=== PATIENT | male | born 1975 | race Caucasian/White ===

== ENCOUNTER 2018-01-15 09:23 | Day surgery (SDC) | payer OTHER ==
[~2018-01-15 09:23] MED LIST: DIPHENHYDRAMINE HCL 50 MG/ML VIAL ONE; NALOXONE HCL INJ/PF 0.4 MG/1 ML SDV ONE; ONDANSETRON HCL INJ/PF 4 MG/2 ML SDV ONE
[2018-01-15] MEDS ORDERED: FLUMAZENIL INJ 0.5 MG/5 ML VIAL ONE (09:24)
[2018-01-15] MEDS ORDERED: EPINEPHRINE INJ 1 MG/10 ML DISP.SYRIN ONE (09:24)
[2018-01-15] MEDS ORDERED: GLUCAGON,HUMAN RECOMB 1 MG INJ ONE (09:24)
[2018-01-15] MEDS: MIDAZOLAM 2 MG/2 ML INJ ONE ×3 (09:55→10:04)
[2018-01-15] MEDS: FENTANYL CITRATE INJ/PF 100 MCG/2 ML AMPUL ONE ×2 (09:57→09:59)
--- NOTE | 2018-01-15 10:12 | Operative Report ---
Operative Report DATE OF SURGERY: 01/15/18 Operative Report: The risks benefits and alternatives of the procedure explained to the patient in detail and informed consent is obtained.A GIF Olympus video scope was inserted into the patient's mouth and hypopharynx, the esophagus is identified intubated and insufflated, the scope was then advanced through the esophagus stomach and duodenum, retroflexion maneuver is done, the esophagus stomach and first and second portions of the duodenum examined PREOPERATIVE DIAGNOSIS: Gastroesophageal reflux disease POSTOPERATIVE DIAGNOSIS: Esophagitis versus Giles's status post biopsy. Gastritis status post biopsy OPERATION: EGD with biopsy SURGEON: MAUREEN MAR ANESTHESIA: Moderate Sedation - 5 mg of Versed, 100 mcg of fentanyl. Conscious sedation monitoring time 30 minutes. TISSUE REMOVED OR ALTERED: As noted above. COMPLICATIONS: None. ESTIMATED BLOOD LOSS: None. INTRAOPERATIVE FINDINGS: As noted above. PROCEDURE: Patient tolerated procedure well. No immediate postprocedure comp occasions are noted. Patient discharged in good condition. Discharge date 01/15/2018. Discharge diet: Regular. Discharge activity: Regular. 2-3 week follow-up to discuss findings. Patient is instructed to call the office or proceed to the emergency room should there be any further problems or questions. We will wait on pathology.
[2018-01-15 11:29] VITALS: BP 118/85
== END 2018-01-15 11:10 | disposition home or self-care (01) ==
LOC: END 09:23
PROVIDERS: ATTEND Internal Medicine Gastroenterology
DX: K31.84 Gastroparesis (principal); K21.0 Gastro-esophageal reflux disease with esophagitis; K29.50 Unspecified chronic gastritis without bleeding
CPT/HCPCS: 43239; 88342 ×2; 88305 ×2; J2250; J3010; J0171; J1200; J1610; J2310; J2405; J3490

== ENCOUNTER 2018-02-05 09:28 | Day surgery (SDC) | payer OTHER ==
[~2018-02-05 09:28] MED LIST changes: +EPINEPHRINE INJ 1 MG/10 ML DISP.SYRIN ONE; +FLUMAZENIL INJ 0.5 MG/5 ML VIAL ONE; +GLUCAGON,HUMAN RECOMB 1 MG INJ ONE; +ONABOTULINUMTOXINA INJ/PF 100 UNIT SDV IM PRN
[2018-02-05] MEDS: MIDAZOLAM 2 MG/2 ML INJ ONE ×2 (09:59→10:03)
[2018-02-05] MEDS: FENTANYL CITRATE INJ/PF 100 MCG/2 ML AMPUL ONE ×2 (10:01→10:05)
--- NOTE | 2018-02-05 10:14 | Operative Report ---
Operative Report DATE OF SURGERY: 02/05/18 Operative Report: The risks benefits and alternatives of the procedure explained to the patient in detail and informed consent is obtained.A GIF Olympus video scope was inserted into the patient's mouth and hypopharynx, the esophagus is identified intubated and insufflated, the scope was then advanced through the esophagus stomach and duodenum, retroflexion maneuver is done, the esophagus stomach and first and second portions of the duodenum examined PREOPERATIVE DIAGNOSIS: Gastroparesis POSTOPERATIVE DIAGNOSIS: Same, gastritis; status post injection of Botox at the gastric outlet. 100 units per 5 mL for 20 U/mL injection. Gastritis. Gastroparesis OPERATION: EGD with submucosal injection SURGEON: MAUREEN MAR ANESTHESIA: Moderate Sedation - 4 mg of Versed, 100 mcg of fentanyl. Conscious sedation monitoring time 30 minutes. TISSUE REMOVED OR ALTERED: None. COMPLICATIONS: None. ESTIMATED BLOOD LOSS: None. INTRAOPERATIVE FINDINGS: As noted above. PROCEDURE: Patient tolerated the procedure well. No immediate postprocedure complications are noted. Patient is discharged in good condition. Discharge date 02/05/2018. Discharge diet: Regular. Discharge activity: Regular. 2-3 week follow-up to discuss findings. Patient is instructed to call the office or proceed to the emergency room should there be any further problems or questions.
[2018-02-05 10:40] VITALS: BP 112/79
== END 2018-02-05 11:20 | disposition home or self-care (01) ==
LOC: END 09:28
PROVIDERS: ATTEND Internal Medicine Gastroenterology
DX: K31.84 Gastroparesis (principal); K29.70 Gastritis, unspecified, without bleeding; K21.9 Gastro-esophageal reflux disease without esophagitis; F17.210 Nicotine dependence, cigarettes, uncomplicated; Z79.899 Other long term (current) drug therapy; Z79.82 Long term (current) use of aspirin
CPT/HCPCS: 43236; J2250; J3010; J0585; J0171; J1200; J1610; J2310; J2405; J3490